=== PATIENT | female | born 1975 | race Caucasian/White ===

== ENCOUNTER 2019-03-19 05:43 | Inpatient (IN) | payer OTHER ==
[2019-03-19] VITALS (26 sets, daily range): BP systolic 95–123; BP diastolic 49–75; PULSE 74–84; RESP 12–22; Ht 157.5 cm; Wt 82.1 kg
[~2019-03-19] VITALS: Ht 157.5 cm; Wt 82.1 kg
[~2019-03-19 05:43] MED LIST: ALBU18HF INHALATION; METF500T24 PO; ONDA4TAB14 PO
[2019-03-19] MEDS ORDERED: PROPOFOL 20 ML ONE (07:26)
[2019-03-19] MEDS ORDERED: GLYCOPYRROLATE 0.4 MG INJ ONE ×2 (07:26→08:29)
[2019-03-19] MEDS ORDERED: NEOSTIGMINE 3 MG/3 ML SYRINGE ONE ×2 (07:26→08:29)
[2019-03-19] MEDS ORDERED: SUCCINYLCHOLINE CHLORIDE 100 MG/5 ML SYG IV ONE (07:26)
[2019-03-19] MEDS ORDERED: ROCURONIUM 50 MG INJ ONE ×2 (07:26→08:30)
[2019-03-19] MEDS ORDERED: LIDOCAINE 2% (SDV) 5 ML INJ ONE (07:26)
[2019-03-19] MEDS ORDERED: MEPERIDINE 100 MG INJ ONE (07:27)
[2019-03-19] MEDS ORDERED: CEFAZOLIN 1 GM INJ ONE (08:29)
[2019-03-19] MEDS ORDERED: METOCLOPRAMIDE 10 MG INJ ONE (08:29)
[2019-03-19] MEDS ORDERED: ONDANSETRON 4 MG INJ ONE (08:29)
[2019-03-19] MEDS ORDERED: SEVOFLURANE 15 MIN ONE (09:00)
[2019-03-19] MEDS ORDERED: EPHEDrine 25 MG/5 ML SYG ONE (09:07)
[2019-03-19] MEDS ORDERED: hydrALAzine 20 MG INJ IV PRN (09:30)
[2019-03-19] MEDS ORDERED: MEPERIDINE 25 MG INJ IV PRN (09:30)
[2019-03-19] MEDS ORDERED: MIDAZOLAM 1 MG/ML 2 ML INJ IV PRN (09:30)
[2019-03-19] MEDS ORDERED: HYDROmorphONE 1 MG/5 ML IV SYRINGE IV PRN ×3 (09:30)
[2019-03-19] MEDS ORDERED: LABETALOL HCL 20MG INJ IV PRN (09:30)
[2019-03-19] MEDS ORDERED: METOCLOPRAMIDE 10 MG INJ IV PRN (09:30)
[2019-03-19] MEDS ORDERED: ONDANSETRON 4 MG INJ IV PRN (09:30)
[2019-03-19] MEDS ORDERED: DIPHENHYDRAMINE 50 MG INJ IV PRN (09:30)
[2019-03-19] MEDS ORDERED: FENTAnyl 50 MCG/ML VIAL IV PRN ×3 (09:30)
[2019-03-19] MEDS ORDERED: EPHEDrine 25 MG/5 ML SYG IV PRN (09:30)
[2019-03-19] MEDS ORDERED: ONDANSETRON INJ 6 MG in DEXTROSE 5% 50 ML IVPB PRN (10:00)
[2019-03-19] MEDS ORDERED: HYDROCODONE/APAP (5/325) TAB PO PRN (10:00)
[2019-03-19] MEDS ORDERED: ALBUTEROL 18 GM INHALER INH SCH (10:00)
[2019-03-19] MEDS ORDERED: ZOLPIDEM 5 MG TAB PO PRN (10:00)
[2019-03-19] MEDS ORDERED: DIPHENHYDRAMINE 50 MG CAP PO PRN (10:00)
[2019-03-19] MEDS ORDERED: KETOROLAC 30 MG INJ IV SCH (10:00)
[2019-03-19] MEDS: ALBUTEROL 18 GM INHALER INH SCH ×3 (13:00→21:00)
[2019-03-19] MEDS: LACTATED RINGER'S 1,000 ML IV SCH ×3 (13:13→21:41)
[2019-03-19] MEDS: CEFAZOLIN 1 GM/50 ML (PMX) 50 ML IVPB SCH ×2 (13:48→21:43)
[2019-03-19] MEDS: METOCLOPRAMIDE 10 MG TAB PO SCH ×2 (13:49→17:50)
[2019-03-19] MEDS: KETOROLAC 30 MG INJ IV SCH ×2 (14:04→19:51)
[2019-03-19] MEDS: ENOXAPARIN 30 MG/0.3 ML SYG SC SCH (21:46)
[2019-03-20] MEDS: METOCLOPRAMIDE 10 MG TAB PO SCH ×4 (00:37→17:42)
[2019-03-20 00:45] VITALS: BP 110/74; PULSE 74; RESP 17
[2019-03-20] MEDS: ALBUTEROL 18 GM INHALER INH SCH ×6 (01:00→21:00)
[2019-03-20] MEDS: KETOROLAC 30 MG INJ IV SCH ×2 (01:33→07:46)
[2019-03-20] MEDS: CEFAZOLIN 1 GM/50 ML (PMX) 50 ML IVPB SCH ×3 (05:05→21:38)
[2019-03-20] MEDS: HYDROCODONE/APAP (5/325) TAB PO PRN ×2 (06:11→14:45)
[2019-03-20] MEDS: LACTATED RINGER'S 1,000 ML IV SCH (07:53)
[2019-03-20] MEDS ORDERED: metFORMIN 500 MG TAB PO SCH (08:00)
[2019-03-20 08:29] VITALS: BP 112/60; PULSE 75; RESP 18
[2019-03-20] MEDS: metFORMIN 500 MG TAB PO SCH (10:43)
[2019-03-20] MEDS ORDERED: BISACODYL (EC) 5 MG TAB PO ONE (11:00)
[2019-03-20] MEDS: ENOXAPARIN 30 MG/0.3 ML SYG SC SCH ×2 (11:18→21:44)
[2019-03-20 14:56] VITALS: BP 110/61; PULSE 75; RESP 18
[2019-03-20] MEDS: ACCU-CHEK XX SCH (17:25)
[2019-03-20] MEDS: KETOROLAC 30 MG INJ IV PRN (17:42)
[2019-03-20 20:05] VITALS: BP 101/58; PULSE 77; RESP 18
[2019-03-21] VITALS: BP 100/59; PULSE 77; RESP 18
[2019-03-21] MEDS: KETOROLAC 30 MG INJ IV PRN ×3 (00:08→12:00)
[2019-03-21] MEDS: METOCLOPRAMIDE 10 MG TAB PO SCH ×3 (00:11→12:00)
[2019-03-21] MEDS: ALBUTEROL 18 GM INHALER INH SCH ×3 (00:12→08:47)
[2019-03-21] MEDS: CEFAZOLIN 1 GM/50 ML (PMX) 50 ML IVPB SCH (05:53)
[2019-03-21 07:20] VITALS: BP 103/53; PULSE 75; RESP 18
[2019-03-21] MEDS: ACCU-CHEK XX SCH (08:09)
[2019-03-21] MEDS: metFORMIN 500 MG TAB PO SCH (08:44)
[2019-03-21] MEDS: ENOXAPARIN 30 MG/0.3 ML SYG SC SCH (08:46)
[2019-03-21] MEDS: HYDROCODONE/APAP (5/325) TAB PO PRN (09:06)
== END 2019-03-21 12:20 | disposition home or self-care (01) | DRG 743 ==
LOC: REC 05:43 → MS1 12:05
PROVIDERS: ADMIT Obstetrics & Gynecology; ATTEND Obstetrics & Gynecology
PROC: 0UT70ZZ Resection of Bilateral Fallopian Tubes, Open Approach (ICD-10-PCS; 2019-03-19)
PROC: 0UT90ZZ Resection of Uterus, Open Approach (ICD-10-PCS; principal; 2019-03-19 07:30)
DX: D25.1 Intramural leiomyoma of uterus (principal); E11.65 Type 2 diabetes mellitus with hyperglycemia; D25.2 Subserosal leiomyoma of uterus; N92.1 Excessive and frequent menstruation with irregular cycle; N39.3 Stress incontinence (female) (male); R10.2 Pelvic and perineal pain; Z90.49 Acquired absence of other specified parts of digestive tract
CPT/HCPCS: 80051; 82565; 82947; 82962; 84520; 85025; 86850; 86900; 86901; 87086; 88302; J0690; J1170; J1650; J1885; J2175; J2405; J2710; J2765; J7120

== ENCOUNTER 2019-03-23 01:55 | Emergency (ER) | payer OTHER ==
[~2019-03-23] VITALS: Ht 157.5 cm; Wt 92.0 kg
[2019-03-23 01:58] VITALS: Ht 157.5 cm; Wt 92.0 kg
[2019-03-23] MEDS ORDERED: morphine 4 MG/ML VIAL IM STA (02:13)
[2019-03-23] MEDS ORDERED: ONDANSETRON (ODT) 4 MG TAB ODT STA (02:13)
[2019-03-23 03:03] VITALS: BP 124/74; PULSE 89; RESP 18
== END 2019-03-23 03:04 | disposition home or self-care (01) ==
LOC: E/R 01:55
DX: G89.18 Other acute postprocedural pain (principal); J45.909 Unspecified asthma, uncomplicated; E11.9 Type 2 diabetes mellitus without complications; Z79.84 Long term (current) use of oral hypoglycemic drugs; Z90.710 Acquired absence of both cervix and uterus
CPT/HCPCS: 81003; 96372; J2270; Z7502; Z7610